=== PATIENT | female | born 1985 | race Caucasian/White ===

== ENCOUNTER 2019-04-25 17:39 | Emergency (ER) | payer OTHER ==
[~2019-04-25] VITALS: Ht 152.4 cm; Wt 72.6 kg
[2019-04-25 18:11] LABS: ABSOLUTE NEUTROPHILS 4.8 thou/uL (1.4-8.2); BASOPHILS 0.8 % (0.0-2.0); EOSINOPHILS 14.9 % (0.0-3.0); HEMATOCRIT 41.4 % (37.0-47.0); HEMOGLOBIN 13.9 gm/dL (12.0-15.0); LYMPHOCYTES 21.4 % (24.0-44.0); MCH 31.7 pg (26.0-34.0); MCHC 33.6 g/dL (28.0-37.0); MCV 94.2 fL (80.0-100.0); PLATELET COUNT 240 thou/uL (150-400); POLYS 58.9 % (36.0-66.0); RDW 13.3 % (10.5-14.5); WBC 8.2 thou/uL (4.0-11.0)
[2019-04-25 18:26] LABS: ANION GAP 5 mmol/L (7-16); BUN 10 mg/dL (7-18); CALCIUM 8.6 mg/dL (8.5-10.1); CHLORIDE 103 mmol/L (98-107); CO2 27 mmol/L (21-32); CREATININE 0.8 mg/dL (0.6-1.0); GLUCOSE 85 mg/dL (74-106); POTASSIUM 3.7 mmol/L (3.5-5.1); SODIUM 135 mmol/L (136-145)
[2019-04-25 18:33] LABS: ALBUMIN 3.5 g/dL (3.4-5.0); SGOT 22 U/L (15-37); SGPT 17 U/L (30-65); TOTAL BILIRUBIN 0.2 mg/dL (<0.1-1.0); TOTAL PROTEIN 7.5 g/dL (6.4-8.2); TROPONIN-I <0.06 ng/mL (<0.06)
[2019-04-25 19:26] LABS: URINE BILIRUBIN NEGATIVE (Negative); URINE BLOOD 2+ (Negative); URINE CLARITY SL CLOUDY; URINE COLOR YELLOW; URINE GLUCOSE-RANDOM* NEGATIVE (Negative); URINE KETONES NEGATIVE (Negative); URINE NITRITE-REFLEX NEGATIVE (Negative); URINE PROTEIN (DIPSTICK) NEGATIVE (Negative); URINE UROBILINOGEN 0.2 E.U./dl (0.2-1.0)
[2019-04-25 19:28] LABS: URINE LEUKOCYTES-REFLEX 3+ (Negative)
[2019-04-25 19:31] LABS: SQUAMOUS 4-10 Moderate /LPF (0-3)
[2019-04-25 19:32] LABS: URINE WBC-REFLEX >25 Many /HPF (0-5)
[2019-04-25 19:33] LABS: CASTS None Seen /LPF (None Seen); CRYSTALS None Seen /LPF (None Seen); URINE RBC 3-10 Few /HPF (0-2)
[2019-04-25] MEDS ORDERED: IBU600 MG PO (20:38)
[2019-04-25] MEDS ORDERED: ZOFRAN ODT4 MG PO (20:38)
[2019-04-25] MEDS ORDERED: KEFLEX500 M1 PO (20:38)
[2019-04-25 21:20] VITALS: BP 106/59
--- NOTE | 2019-04-26 08:21 | EKG ---
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
== END 2019-04-25 21:22 | disposition home or self-care (01) ==
LOC: ER 17:39
PROVIDERS: Emergency Medicine
DX: N12 Tubulo-interstitial nephritis, not specified as acute or chronic (principal); R07.89 Other chest pain; F17.220 Nicotine dependence, chewing tobacco, uncomplicated

== ENCOUNTER 2019-08-26 09:04 | Emergency (ER) | payer OTHER ==
[~2019-08-26] VITALS: Ht 152.4 cm; Wt 72.6 kg
[~2019-08-26 09:04] MED LIST: IBU600 MG PO; KEFLEX500 M1 PO; ZOFRAN ODT4 MG PO
[2019-08-26 09:22] LABS: URINE BILIRUBIN NEGATIVE (Negative); URINE BLOOD 1+ (Negative); URINE CLARITY CLEAR; URINE COLOR YELLOW; URINE GLUCOSE-RANDOM* NEGATIVE (Negative); URINE KETONES NEGATIVE (Negative); URINE NITRITE-REFLEX NEGATIVE (Negative); URINE PROTEIN (DIPSTICK) NEGATIVE (Negative); URINE SPECIFIC GRAVITY 1.015 (1.005-1.035); URINE UROBILINOGEN 0.2 E.U./dl (0.2-1.0)
[2019-08-26 09:25] LABS: URINE LEUKOCYTES-REFLEX 1+ (Negative)
[2019-08-26 09:30] LABS: ABSOLUTE NEUTROPHILS 5.4 thou/uL (1.4-8.2); BASOPHILS 1.1 % (0.0-2.0); EOSINOPHILS 14.7 % (0.0-3.0); HEMATOCRIT 42.1 % (37.0-47.0); HEMOGLOBIN 14.5 gm/dL (12.0-15.0); LYMPHOCYTES 23.6 % (24.0-44.0); MCH 32.3 pg (26.0-34.0); MCHC 34.4 g/dL (28.0-37.0); MCV 93.9 fL (80.0-100.0); MONOCYTES 7.1 % (1.0-8.0); PLATELET COUNT 236 thou/uL (150-400); POLYS 53.5 % (36.0-66.0); RBC 4.48 mil/uL (4.20-5.00); RDW 12.9 % (10.5-14.5); WBC 10.2 thou/uL (4.0-11.0)
[2019-08-26 09:38] LABS: CREATININE 0.7 mg/dL (0.6-1.0); POTASSIUM 3.6 mmol/L (3.5-5.1)
[2019-08-26 09:44] LABS: ALBUMIN 3.3 g/dL (3.4-5.0); TOTAL BILIRUBIN 0.2 mg/dL (0.2-1.0); TOTAL PROTEIN 8.1 g/dL (6.4-8.2)
[2019-08-26 09:44] LABS: BACTERIA-REFLEX 1-9 Few /HPF (None Seen); CASTS None Seen /LPF (None Seen); CRYSTALS None Seen /LPF (None Seen); SQUAMOUS 0-3 Few /LPF (0-3); URINE RBC None Seen /HPF (0-2); URINE WBC-REFLEX 0-5 Rare /HPF (0-5)
[2019-08-26] MEDS ORDERED: DOXYCYCLINE 10100 MG PO (12:57)
[2019-08-26] MEDS ORDERED: NAPROSYN500 MG PO (12:57)
[2019-08-26] MEDS ORDERED: TRAMADOL 50 MG50 MG PO (12:57)
[2019-08-26 13:00] VITALS: BP 104/70
== END 2019-08-26 13:00 | disposition home or self-care (01) ==
LOC: ER 09:04
PROVIDERS: Emergency Medicine
DX: N73.9 Female pelvic inflammatory disease, unspecified (principal); F17.200 Nicotine dependence, unspecified, uncomplicated; Z79.1 Long term (current) use of non-steroidal anti-inflammatories (NSAID); Z79.899 Other long term (current) drug therapy

== ENCOUNTER 2019-12-20 21:56 | Emergency (ER) | payer OTHER ==
[~2019-12-20] VITALS: Ht 165.1 cm; Wt 74.8 kg
[~2019-12-20 21:56] MED LIST changes: +DOXYCYCLINE 10100 MG PO; +NAPROSYN500 MG PO; +TRAMADOL 50 MG50 MG PO
[2019-12-20 22:34] LABS: URINE BILIRUBIN NEGATIVE (Negative); URINE BLOOD TRACE (Negative); URINE CLARITY CLEAR; URINE COLOR YELLOW; URINE GLUCOSE-RANDOM* TRACE (Negative); URINE KETONES NEGATIVE (Negative); URINE PROTEIN (DIPSTICK) NEGATIVE (Negative); URINE SPECIFIC GRAVITY <= 1.005 (1.005-1.035)
[2019-12-20 22:37] LABS: URINE LEUKOCYTES-REFLEX 3+ (Negative); URINE NITRITE-REFLEX POSITIVE (Negative)
[2019-12-20 23:42] LABS: CASTS None Seen /LPF (None Seen); MUCUS None Seen strn/LPF (None Seen); SQUAMOUS 0-3 Few /LPF (0-3)
[2019-12-20 23:43] LABS: BACTERIA-REFLEX 1-9 Few /HPF (None Seen); CRYSTALS None Seen /LPF (None Seen); URINE RBC 0-2 Rare /HPF (0-2); WBC CLUMPS Occasional (None Seen)
[2019-12-21] MEDS ORDERED: KEFLEX500 M1 PO (00:56)
[2019-12-21 01:22] VITALS: BP 109/65
== END 2019-12-21 01:23 | disposition home or self-care (01) ==
LOC: ER 21:56
PROVIDERS: Emergency Medicine
DX: N39.0 Urinary tract infection, site not specified (principal)